=== PATIENT | female | born 1960 ===

== ENCOUNTER 2024-04-18 17:51 | Emergency (ER) | payer MEDICAID, SELFPAY ==
--- NOTE | ~2024-04-18 | CT_ITS ---
EXAMINATION: CT HEAD WITHOUT CONTRAST CLINICAL INFORMATION: Headache. COMPARISON: None available. TECHNIQUE: Contiguous axial imaging was performed from the skull base to vertex without intravenous administration of contrast. This CT examination was performed using dose optimization techniques as appropriate, variously including the following: *Automated exposure control. *Adjustment of mA and/or kV according to patient size (this includes techniques or standardized protocols for targeted exams where dose is matched to indication/reason for exam; i.e. extremities or head). *Use of iterative reconstruction technique. DLP: 564 mGy-cm FINDINGS: There is no evidence of acute intracranial hemorrhage or edematous territorial infarction. Carmichael-white matter differentiation is preserved. Scattered and partially confluent hypoattenuation in the periventricular and deep white matter are consistent with moderate microangiopathy. Proportional prominence of the ventricles and sulcal spaces without evidence of obstructive hydrocephalus. No abnormal mass effect or midline shift. No extra-axial fluid collections. No acute soft tissue or osseous abnormalities. Mild mucosal thickening of the paranasal sinuses. The mastoid air cells and middle ear cavities are clear. CT/CT head/brain wo IV con IMPRESSION: 1. No evidence of acute intracranial hemorrhage or edematous territorial infarction. 2. Moderate underlying microangiopathy and generalized cerebral volume loss. Electronically signed by: Sukhdeep Adames DO 04/18/2024 07:58 PM EDT
[2024-04-18 17:58] VITALS: BP 166/95; PULSE 96; RESP 22; TEMP 36.8; O2SAT 100; BMI 24.9
--- NOTE | 2024-04-18 18:02 | ECG_ITS ---
Test Reason : PAIN Blood Pressure : / mmHG Vent. Rate : 093 BPM Atrial Rate : 093 BPM P-R Int : 120 ms QRS Dur : 126 ms QT Int : 398 ms P-R-T Axes : 005 002 -11 degrees QTc Int : 494 ms Normal sinus rhythm Right bundle branch block Anterior infarct , age undetermined T wave abnormality, consider inferior ischemia Abnormal ECG No previous ECGs available Referred By: Nicholas Howard Electronically Signed By:LIZANDRO GUIDRY
--- NOTE | 2024-04-18 18:03 | ED.GENADULT ---
HPI - General Adult General Chief complaint: Dizziness Stated complaint: stroke like symptoms Time Seen by Provider: 04/18/24 19:30 History of Present Illness ED Provider: Zeus OAKES narrative: The patient is a 64-year-old female who comes to the emergency room for evaluation of a headache. The patient has a history of hypertension and history of mild dementia. She lives with her daughter. The patient says that she woke up with a headache this morning. She has a history of headaches. This headache was somewhat worse than her usual headaches. She did not mentioned in the headache to her daughter. This afternoon she was at a grocery store with her daughter when she seemed to feel dizzy and stumbled a little bit. She told her daughter about the headache at that point. She also complained of nausea and blurry vision. The daughter had her sit down and then brought her to the hospital by private vehicle. The patient says that the headache is 10/10. It is associated with nausea and photophobia. The patient has a history of migraines and has been having more frequent headaches over the last few months. She says this headache is worse than usual. No fever, sweats, chills. There is no report of any lateralizing weakness or change of speech or other neurological complaints. Related Data Allergies Allergy/AdvReac Type Severity Reaction Status Date / Time No Known Allergies Allergy Verified 04/18/24 18:00 [facility] Social History Social History Alcohol intake: current Alcohol type: wine Smoked in Last 30 Days: No Use of substances other than those prescribed or required for medical reasons: No Advance Directives: No Advance Directives Information Provided: No Physical Exam ED Vital Signs: Vital Signs - 24 hr 04/18/24 17:58 04/18/24 19:41 04/18/24 21:55 Temperature 98.3 F 97.9 F Pulse Rate 96 94 88 Respiratory Rate 22 H 22 H 17 Blood Pressure 166/95 H 159/97 H 144/85 H Pulse Oximetry 100 100 98 Oxygen Delivery Method Room Air Room Air Room Air BMI result Body Mass Index 24.9 Const Other: The patient is awake and alert. She says that she has a headache that she rates as a 10/10. She does not look toxic or obviously uncomfortable however. HENMT Other: Face is symmetrical. Mucous membranes moist. Tongue is midline. Eyes Other: Pupils are round equal, conjunctivae are clear, extraocular movements are intact, visual eaton are intact to confrontation. Neck Other: Neck is supple, no JVD Resp Effort & Inspection: normal respiratory effort Auscultation: clear to auscultation bilaterally Cardio Rate: regular rate Rhythm: regular rhythm Heart sounds: S1 normal heart sound present and S2 normal heart sound present GI Other: Abdomen is soft and nontender Skin Other: Skin is dry and unremarkable Neuro Other: The patient is awake, alert, pleasant, cooperative. Pupils are round equal, extraocular movements are intact, visual eaton are intact, the face is symmetrical, speech is clear, no aphasia, no dysarthria, normal strength in the extremities. No pronator drift. Finger-nose is normal. Heel-willingham is normal. Gait is steady. NIH stroke scale is 0. Extrem Other: No peripheral edema Course Course Course Narrative: RME, this is a rapid medical exam performed by Lewis Howard please refer to primary provider for complete H&P- 64-year-old female presents for evaluation of a severe headache. Patient was shopping with family, when the daughter returned, the patient was complaining of a severe headache, blurry vision and seemed confused the daughter. At the time of triage, the patient is awake, alert and oriented, she is answering questions appropriately, she has an NIH stroke score of 0. Plan for labs, CT scan of the brain. Medications Administered Discontinued Medications Generic Name Dose Route Start Last Admin Trade Name Humbertoq PRN Reason Stop Dose Admin Diphenhydramine HCl 25 mg 04/18/24 19:49 04/18/24 20:34 Diphenhydramine Hcl 50 Mg/Ml Vial IVPUSH 04/18/24 19:50 25 mg ONCE ONE Administration Sodium Chloride 1,000 mls @ 999 mls/hr 04/18/24 20:00 04/18/24 21:55 Ns IV 04/18/24 21:00 Infused .Q1H1M HUSSEIN Infusion Acetaminophen 1,000 mg in 100 mls @ 400 mls/hr 04/18/24 19:49 04/18/24 21:55 Ofirmev IV 04/18/24 20:03 Infused ONCE ONE Infusion Metoclopramide HCl 10 mg 04/18/24 19:49 04/18/24 20:35 Metoclopramide Hcl 10 Mg/2 Ml Vial IVPUSH 04/18/24 19:50 10 mg ONCE ONE Administration Medical Decision Making Medical Decision Making [facility] Narrative: The patient is a very pleasant 64-year-old female. According to her daughter she has some mild dementia. Clinically the patient presents with a headache that she says she woke up with this morning. She subsequently had some dizziness in the grocery store. She says that the headache is associated with nausea and photophobia. She has a history of similar headaches but less severe headaches. I suspect that this is probably a migraine headache. A head CT was negative for acute findings. She was treated with a dose of IV acetaminophen as well as IV metoclopramide and diphenhydramine as well as 1 L of IV crystalloid. Her headache improved. She was steady on her feet. I think she may be discharged with a presumed diagnosis of a migraine headache. The patient does not have a local PCP. She used to live in [place], [place]. She had a regular doctor in [place]. She now lives with a daughter and this area and has not yet established a primary care doctor. The immigration case manager spoke to the daughter about options for primary care follow up. Lab Data 04/18/24 18:21 04/18/24 18:21 Labs: Lab Results 04/18/24 04/18/24 04/18/24 Range/Units 18:21 19:19 19:24 WBC 11.7 H (4.8-10.8) X10*3/uL RBC 4.59 (4.20-5.50) X10*6/uL Hgb 13.8 (12.0-16.0) g/dl Hct 40.7 (37.0-47.0) % MCV 88.7 (80.0-98.0) fL MCH 30.1 (27.0-33.0) pg MCHC 33.9 (31.0-35.0) g/dl RDW 15.1 (11.0-16.0) % Plt Count 291 (160-400) X10*3/uL MPV 9.4 (9.4-12.3) fL Immature Gran % (Auto) 0.4 (0.0-0.4) % Neut % (Auto) 57.1 (45-73) % Lymph % (Auto) 34.2 (20-40) % Becker % (Auto) 5.2 (2-11) % Eos % (Auto) 2.3 (0-4) % Baso % (Auto) 0.8 (0-2) % Lymph # (Auto) 4.0 (1.2-4.9) X10*3/uL Becker # (Auto) 0.6 (0.1-1.2) X10*3/uL Eos # (Auto) 0.3 (0.0-0.4) X10*3/uL Baso # (Auto) 0.1 (0.0-0.2) X10*3/uL Abs Immat Gran (auto) 0.05 H (0.00-0.03) X10*3/uL Absolute Neuts (auto) 6.7 (2.0-8.3) x10*3/uL Absolute Nucleated RBC 0.000 (0.0-0.012) X10*3/uL Nucleated RBC % (auto) 0.0 (0.0-0.2) /100WBC PT 10.9 (10.9-12.4) SEC INR 0.9 (0.9-1.1) VBG pH 7.44 H (7.32-7.43) VBG pCO2 26 mmHg VBG pO2 47 mmHg VBG HCO3 18 L (22-26) mmol/L VBG O2 Saturation 75.0 % VBG Base Excess -3.9 mmol/L Sodium 137 (135-145) mmol/L Potassium 4.9 (3.3-5.1) mmol/L Chloride 97 (96-108) mmol/L Carbon Dioxide 16 L (22-29) mmol/L Anion Gap 29 H (12-20) BUN 19 H (9-16) mg/dL Creatinine 0.81 (0.5-1.4) mg/dL Estim Creat Clear Calc 59.1 Estimated GFR > 60 Random Glucose 76 (60-115) mg/dL Lactic Acid 3.3 H* (0.5-2.0) mmol/L Calcium 9.2 (8.4-10.2) mg/dL Total Bilirubin 0.3 (0.0-1.0) mg/dL AST 48 H (5-31) U/L ALT 30 (0-31) U/L Alkaline Phosphatase 99 (39-117) U/L Troponin I High Sens < 2.7 (<3.5-17.0) ng/L B-Natriuretic Peptide 13 (<100) pg/mL Total Protein 8.3 H (6.5-8.0) g/dL Albumin 4.5 (3.5-5.0) g/dL Lipase 13 (8-78) U/L Urine Color Urine Appearance Urine pH (5.0-9.0) Ur Specific Boron (1.005-1.025) Urine Protein (Neg-Trace) mg/dL Urine Glucose (UA) (Negative) mg/dL Urine Ketones (Negative) mg/dL Urine Blood (Negative) Urine Nitrite (Negative) Ur Leukocyte Esterase (Negative) Urine RBC (0-2) /HPF Urine WBC (0-5) /HPF Ur Squamous Epith Cells (0-2) /HPF Urine Bacteria (None Seen) Hyaline Casts (0-2) /LPF COVID-19 (LANCE) Negative (Negative) COVID-19 Clin Com See Note Influenza Type A (PCR) NEGATIVE (Negative) Influenza Type B (PCR) NEGATIVE (Negative) RSV RNA Qual (PCR) NEGATIVE (Negative) SARS-CoV-2 RNA (RT-PCR) NEGATIVE (Negative) 04/18/24 Range/Units 20:32 WBC (4.8-10.8) X10*3/uL RBC (4.20-5.50) X10*6/uL Hgb (12.0-16.0) g/dl Hct (37.0-47.0) % MCV (80.0-98.0) fL MCH (27.0-33.0) pg MCHC (31.0-35.0) g/dl RDW (11.0-16.0) % Plt Count (160-400) X10*3/uL MPV (9.4-12.3) fL Immature Gran % (Auto) (0.0-0.4) % Neut % (Auto) (45-73) % Lymph % (Auto) (20-40) % Becker % (Auto) (2-11) % Eos % (Auto) (0-4) % Baso % (Auto) (0-2) % Lymph # (Auto) (1.2-4.9) X10*3/uL Becker # (Auto) (0.1-1.2) X10*3/uL Eos # (Auto) (0.0-0.4) X10*3/uL Baso # (Auto) (0.0-0.2) X10*3/uL Abs Immat Gran (auto) (0.00-0.03) X10*3/uL Absolute Neuts (auto) (2.0-8.3) x10*3/uL Absolute Nucleated RBC (0.0-0.012) X10*3/uL Nucleated RBC % (auto) (0.0-0.2) /100WBC PT (10.9-12.4) SEC INR (0.9-1.1) VBG pH (7.32-7.43) VBG pCO2 mmHg VBG pO2 mmHg VBG HCO3 (22-26) mmol/L VBG O2 Saturation % VBG Base Excess mmol/L Sodium (135-145) mmol/L Potassium (3.3-5.1) mmol/L Chloride (96-108) mmol/L Carbon Dioxide (22-29) mmol/L Anion Gap (12-20) BUN (9-16) mg/dL Creatinine (0.5-1.4) mg/dL Estim Creat Clear Calc Estimated GFR Random Glucose (60-115) mg/dL Lactic Acid (0.5-2.0) mmol/L Calcium (8.4-10.2) mg/dL Total Bilirubin (0.0-1.0) mg/dL AST (5-31) U/L ALT (0-31) U/L Alkaline Phosphatase (39-117) U/L Troponin I High Sens (<3.5-17.0) ng/L B-Natriuretic Peptide (<100) pg/mL Total Protein (6.5-8.0) g/dL Albumin (3.5-5.0) g/dL Lipase (8-78) U/L Urine Color Yellow Urine Appearance Cloudy Urine pH 5.5 (5.0-9.0) Ur Specific Boron >= 1.030 H (1.005-1.025) Urine Protein 30 (1+) H (Neg-Trace) mg/dL Urine Glucose (UA) Negative (Negative) mg/dL Urine Ketones 40 (Negative) mg/dL Urine Blood Large (3+) H (Negative) Urine Nitrite Negative (Negative) Ur Leukocyte Esterase Negative (Negative) Urine RBC >20 H (0-2) /HPF Urine WBC 0-5 (0-5) /HPF Ur Squamous Epith Cells 11-20 (0-2) /HPF Urine Bacteria 3+ (None Seen) Hyaline Casts 3-5 (0-2) /LPF COVID-19 (LANCE) (Negative) COVID-19 Clin Com Influenza Type A (PCR) (Negative) Influenza Type B (PCR) (Negative) RSV RNA Qual (PCR) (Negative) SARS-CoV-2 RNA (RT-PCR) (Negative) Discharge Plan Discharge Clinical Impression: Migraine headache Patient Disposition: Home, Self-Care Instructions: Migraine Headache (ED) Additional Instructions: I think it was most likely a migraine headache that you had today. Please rest to get some sleep tonight. Continue your current medications. Please work on getting a new primary care doctor in this area. Return to the emergency room if significantly worse. Interventions: ED Discharge Assessment Last Done: 04/18/24 22:02 Print Language: Serbian
[2024-04-18 18:29] LABS: MANUAL DIFF FLAG NO
[2024-04-18 18:31] LABS: Basophils Absolute Auto 0.1 X10*3/uL (0.0-0.2); Basophils Percent Auto 0.8 % (0-2); Eosinophils Absolute Auto 0.3 X10*3/uL (0.0-0.4); Eosinophils Percent Auto 2.3 % (0-4); Hematocrit 40.7 % (37.0-47.0); Hemoglobin 13.8 g/dl (12.0-16.0); Imm Gran Abs Auto 0.05 X10*3/uL (0.00-0.03); Imm Gran Pct Auto 0.4 % (0.0-0.4); Lymphocytes Percent Auto 34.2 % (20-40); Mean Corpuscular HGB Conc 33.9 g/dl (31.0-35.0); Mean Corpuscular Hemoglobin 30.1 pg (27.0-33.0); Mean Corpuscular Volume 88.7 fL (80.0-98.0); Mean Platelet Volume 9.4 fL (9.4-12.3); Monocytes Absolute Auto 0.6 X10*3/uL (0.1-1.2); Monocytes Percent Auto 5.2 % (2-11); Neutrophils Absolute Auto 6.7 x10*3/uL (2.0-8.3); Neutrophils Percent Auto 57.1 % (45-73); Platelet Count 291 X10*3/uL (160-400); Red Blood Count 4.59 X10*6/uL (4.20-5.50); Red Cell Distribution Width 15.1 % (11.0-16.0); White Blood Count 11.7 X10*3/uL (4.8-10.8)
[2024-04-18 18:43] LABS: COVID-19 Test Negative (Negative); IDNOW Serial# 58CA691E
[2024-04-18 18:46] LABS: Alanine Aminotransferase 30 U/L (0-31); Albumin Level 4.5 g/dL (3.5-5.0); Alkaline Phosphatase 99 U/L (39-117); Anion Gap 29 (12-20); Aspartate Amino Transferase 48 U/L (5-31); Bilirubin Total 0.3 mg/dL (0.0-1.0); Blood Urea Nitrogen 19 mg/dL (9-16); Calcium 9.2 mg/dL (8.4-10.2); Carbon Dioxide 16 mmol/L (22-29); Chloride 97 mmol/L (96-108); Creatinine Clr Calc Pharmacy 59.1; Estimated Glomerular Filt Rate > 60; Glucose Random 76 mg/dL (60-115); Lipase 13 U/L (8-78); Potassium 4.9 mmol/L (3.3-5.1); Sodium 137 mmol/L (135-145); Total Protein 8.3 g/dL (6.5-8.0)
[2024-04-18 18:52] LABS: INTERNATIONAL NORM RATIO 0.9 (0.9-1.1); Prothrombin Time 10.9 SEC (10.9-12.4)
[2024-04-18 18:54] LABS: Troponin-I High Sensitivity < 2.7 ng/L (<3.5-17.0)
[2024-04-18 19:06] LABS: Influenza A PCR NEGATIVE (Negative); Influenza B PCR NEGATIVE (Negative); Resp Syncy Virus RNA Qual PCR NEGATIVE (Negative); SARS COV2 PCR INHOUSE NEGATIVE (Negative)
[2024-04-18 19:28] LABS: VBG Base Excess -3.9 mmol/L; VBG HCO3 18 mmol/L (22-26); VBG pCO2 26 mmHg; VBG pH 7.44 (7.32-7.43); VBG pO2 47 mmHg
[2024-04-18 19:41] VITALS: BP 159/97; PULSE 94; RESP 22; O2SAT 100
[2024-04-18 19:42] LABS: Lactic Acid 3.3 mmol/L (0.5-2.0)
[2024-04-18 19:57] LABS: B Type Natriuretic Peptide 13 pg/mL (<100)
[2024-04-18 20:18] LABS: Venous Blood Gas Refer to POC result
[2024-04-18] MEDS: diphenhydrAMINE HCL 50 MG/ML VIAL 25 MG IVPUSH (20:34)
[2024-04-18] MEDS: 0.9 % Sodium Chloride 1,000 ML 999 ML IV (20:34)
[2024-04-18] MEDS: Acetaminophen 1,000 MG/100 ML PIGGYBACK 400 MG IV (20:35)
[2024-04-18] MEDS: Metoclopramide HCl 10 MG/2 ML VIAL IVPUSH (20:35)
[2024-04-18 20:40] LABS: Appearance Urine Cloudy; Color Urine Yellow; Glucose Urine UA Negative (Negative); Leukocyte Esterase Urine Negative (Negative); Nitrite Urine Negative (Negative); PH 5.5 (5.0-9.0); Specific Gravity - Urine >= 1.030 (1.005-1.025); UMIC TRIGGER UACC YES; Urine Blood Large (3+) (Negative); Urine Ketones 40 mg/dL (Negative); Urine Protein 30 (1+) mg/dL (Neg-Trace)
[2024-04-18 20:42] LABS: Bacteria Urine 3+ (None Seen); RBC Urine >20 /HPF (0-2); WBC Urine 0-5 /HPF (0-5)
[2024-04-18 21:23] LABS: Reflex Lactate? Lactic Acid Added
[2024-04-18 21:55] VITALS: BP 144/85; PULSE 88; RESP 17; TEMP 36.6; O2SAT 98
[2024-04-18 22:02] VITALS: BP 144/85; PULSE 88; RESP 17; TEMP 36.6; O2SAT 98
== END 2024-04-18 22:04 | disposition home or self-care (01) ==
PROVIDERS: Physician Assistant; Emergency Provider Emergency Medicine
DX: G43.909 Migraine, unspecified, not intractable, without status migrainosus (principal); Z03.818 Encounter for observation for suspected exposure to other biological agents ruled out; I10 Essential (primary) hypertension
CPT/HCPCS: 0241U; 36415; 70450; 80053; 81001; 82803; 83605; 83690; 83880; 84484; 85025; 85610; 87635; 93005; 96361; 96374; 96375; 99284; 99285; J0131; J1200; J2765

== ENCOUNTER 2024-04-25 14:18 | Outpatient (AMB) | payer MEDICAID, SELFPAY ==
--- NOTE | 2024-04-25 15:07 | A.OFFVISCC_ITS ---
Vital Signs 04/26/24 15:40 BP 160/80 H Blood Pressure Location Rt brachial Position Sitting Pulse 96 Pulse Oximetry (%) 98 Intake Visit Reasons: Intake Allergies No Known Allergies Allergy (Verified 04/18/24 18:00) HPI HPI Intake: Details: Patient presents for evaluation and treatment of alcohol use She is accompanied by her daughter during visit RN obtained full substance history -reviewed Patient reports that she drinks every 2-3 days and each time will drink a bottle of wine She will occasionally also have vodka as well She usually starts drinking around 5 pm and will drink until she falls asleep She denies any tremor in the mornings She does report frequent nausea and vomiting, which she believes may be related to anxiety as well Denies any history of seizures Denies any history of treatment Reports that she started drinking at age 11. 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 son was incarcerated and this was a major source of sadness for her [facility] Social History Alcohol intake: current Alcohol type: wine Review of Systems Const Reports as per HPI GI Reports loose stools (occasional ), Reports nausea and Reports vomiting Psych Reports abnormal sleep pattern, Reports anxiety, Reports depression and Reports difficulty concentrating Physical Exam Const General: cooperative and anxious Nutritional Appearance: average body habitus Limitations: no limitations Psych Appearance: well kempt Speech and movement: Clear speech present Affect: Sad affect present and Anxious affect present Attitude: cooperative Thought process: Normal thought process present Insight: Fair insight present (Psych) Judgement: Fair judgement present (Psych) Assessment & Plan Assessment & Plan (1) Alcohol use disorder, moderate, dependence: Code(s): F10.20 - Alcohol dependence, uncomplicated Category: Medical Plan: * discussed medication options, agreeable to naltrexone. Reviewed dosing, goals of treatment and side effects * discussed lack of structure and isolation--presented PHP as an option to address some sx and work to develop coping strategies in addition to medications. Patient agreeable * risk reduction discussion related to drinking--avoid vodka if possbile, take vitamins and medications in the morning, attempt to eat something prior to drinking * encouraged to seek out PCP and weight management provider in the near future --can assist with this if needed Medications: New naltrexone take 1/2 tab daily for 3 days then take one tab daily 50 mg PO DAILY 30 tabs 0RF MAT Intake Nursing Intake Reason for visit: help with drinking Are you currently using?: Yes What are you taking?: Wine and Vodka When was your last use?: two days ago How much?: 1bottle of wine What is your source of income?: unemployed What is your current relationship status?: single Current PCP: N/A Date of last visit: >5 years Referral Source: I writer technical publications met her daughter at a community event who then brought her in Substance Abuse History Substance Abuse History (includes route, frequency and quantity): Alcohol Social History Domestic Violence concerns: No Children: 2 Do you have a support system?: yes daughter, but acknowledges needing Current mode of transportation?: daughter drives her, she does not have a car, interested in pt1 transportation Where are you currently residing?: in a home in [place] with daughter Are you using contraception?: No IV Drug Use Have you ever shared needles?: No Have you ever belonged to a needle exchange program?: No Do you buy needles at a pharmacy?: No Have you ever overdosed?: No Have you ever been hospitalized for an overdose?: No Was Naloxone administered?: No Recovery History Have you had any periods of recovery?: No Have you ever had inpatient treatment for your substance abuse disorder?: No Have you been in an inpatient detoxification program?: No Have you been in an inpatient Rehab/[place] house?: No Have you been in an outpatient Methadone Maintenance program?: No Have you been in an outpatient Suboxone Maintenance program?: No Have you been in an AA/NA support program?: No Have you had a Recovery Support Trust Advisor?: No Have you had Peer Support?: No Behavioral Health History Do you have a current provider? If so, who?: No, needs one History of self harming thoughts?: No History of homicidal or suicidal intentions?: No Medical Conditions Endocarditis?: No Skin Infection: No Seizure related to withdrawal or overdose: No Head or brain injury: Yes Hepatitis A (if yes, have you been treated?): No Hepatitis B (if yes, have you been treated?): No Hepatitis C (if yes, have you been treated?): No HIV (if yes, have you been treated?): No TB (if yes, have you been treated?): No Legal History History of incarceration: No Currently on parole or probation: No Court mandated programs: No Pending court cases: No DCF involvement: No
[2024-04-26 15:40] VITALS: BP 160/80; PULSE 96; O2SAT 98
== END 2024-04-25 15:41 | disposition home or self-care (01) ==
PROVIDERS: PCP Physician Assistant Medical; Visit Provider Nurse Practitioner Psychiatric/Mental Health
DX: F10.20 Alcohol dependence, uncomplicated (principal)
CPT/HCPCS: 99204

== ENCOUNTER → 2024-04-25 14:18 | Outpatient (BNVA) | payer MEDICAID, SELFPAY | PROVIDERS: PCP Physician Assistant Medical; Visit Provider Nurse Practitioner Psychiatric/Mental Health | DX: F10.20 Alcohol dependence, uncomplicated (principal) | CPT/HCPCS: 99212 ==

== ENCOUNTER 2024-05-10 15:54 | Emergency (ER) | payer MEDICAID, SELFPAY ==
[2024-05-10 16:25] VITALS: BP 153/95; PULSE 84; RESP 18; TEMP 36.4; O2SAT 100; BMI 29.3
--- NOTE | 2024-05-10 16:30 | ED.HA ---
HPI - Headache General Chief Complaint: Headache Stated Complaint: Headache/Vomiting Time Seen by Provider: 05/10/24 19:04 Source: patient and family Mode of arrival: ambulatory Limitations: no limitations History of Present Illness HPI Narrative: Patient is a 64-year-old female with past medical history of migraine headaches, hypertension, dementia, GERD, use disorder who presents emergency department evaluation of intermittent migraine headaches. Over the past few weeks a been occurring more frequently. Migraine was associated with photophobia, phonophobia, nausea and vomiting. No recent fall or head injury. No vision changes. No dizziness. No chest pain shortness of breath or difficulty breathing. She had a recent ED visit 04/18/2024 similarly, where she received IV medications and had a CT of the head which was unremarkable was ultimately discharged home. She has been living in this area since September of 2023, unfortunately has not been able to establish care with a primary care doctor locally to discuss migraine management. Daughter expresses concern that perhaps she is not taking her medications as prescribed due to her underlying dementia. She is supposed to be taking lisinopril 20 mg daily, the bottle that she presents with was filled in September of 2023, it was only a 90 day supply, there are still pills remaining affirming that she is likely not taking them as prescribed. She also has a history of alcohol use disorder, on 04/25/2024 she was prescribed naltrexone from [facility], and she continues to drink despite taking this. Daughter reports that Related Data Previous Rx's ?Medication ?Instructions ?Recorded naltrexone 50 mg tablet 50 mg PO DAILY #30 tabs 04/25/24 Allergies Allergy/AdvReac Type Severity Reaction Status Date / Time No Known Allergies Allergy Verified 05/10/24 16:30 Review of Systems Review of Systems: Yes all other systems are reviewed and are negative [facility] Past Medical History Attestation statement: The following information was validated with the patient. Source: old records reviewed Social History Social History Alcohol intake: current Alcohol type: wine Advance Directives: No Advance Directives Information Provided: Yes Do you have a plan to hurt others: No Plan Physical Exam Vital Signs: Vital Signs: Last Vital Signs Temp 98.0 F 05/10/24 19:54 Pulse 69 05/10/24 19:54 Resp 16 05/10/24 19:54 BP 150/93 H 05/10/24 19:54 Pulse Ox 100 05/10/24 19:54 O2 Del Method Room Air 05/10/24 19:54 O2 Flow Rate 100 05/10/24 18:00 BMI result Body Mass Index 29.3 Appearance: Alert.?Oriented to person, place and time. No acute distress.?Normal affect. Eyes: Pupils equal, round and reactive to light.? EOMI. No nystagmus. ENT: Pharynx normal.?? Neck: Normal inspection.? Neck supple.??Full range of motion. No rigidity. CVS: Heart sounds normal. Normal heart rate and rhythm.? Pulses normal.?? Respiratory: No respiratory distress.? Lung sounds clear to auscultation bilaterally?? Abdomen: Soft and non-tender. Normoactive bowel sounds. Skin: Skin warm and dry.? Normal skin color.? Extremities: No lower extremity edema.? Neuro: Moves all extremities spontaneously. Sensation intact bilaterally. CN II-XII intact. No focal neuro deficits. Ambulates with normal steady gait. Course Course Course Narrative: This is a rapid medical exam performed by Sherron Tsang PA-C. 64-year-old female with a history of alcohol use disorder, migraines, presents with migraine type headache x 1 day. Patient states she has been having intermittent headaches over the past week. Today the headache is frontal, with associated photophobia, phonophobia and nausea vomiting. On exam, the patient is neurologically intact with a steady gait. Given multiple episodes of nausea vomiting, we will screen basic labs. To note, there has been no preceding head trauma, she is not require imaging at this time. She was seen in the ER a few weeks ago with same presentation. She is able to return to the waiting room pending her full assessment. Reevaluation(s) Reevaluation #1: Headache has improved with oral medications; Tylenol, Benadryl, Reglan requesting discharge home at this time which I feel is appropriate. Advised close outpatient follow-up with addiction medicine, advised to refrain from alcohol consumption (reports no history of DT/withdrawal seizure). Daughter encouraged to continue calling local primary care offices to try and see if she can establish a sooner appointment. Has plans to find encourage daily consistent medication compliance, does not need any prescription refills at this time, medications not . Time: 20:59 Medications Administered Discontinued Medications Generic Name Dose Route Start Last Admin Trade Name Edi PRN Reason Stop Dose Admin Acetaminophen 975 mg 05/10/24 19:49 05/10/24 19:58 Acetaminophen 325 Mg Tablet PO 05/10/24 19:50 975 mg ONCE ONE Administration Diphenhydramine HCl 25 mg 05/10/24 19:49 05/10/24 19:57 Diphenhydramine Hcl 25 Mg Capsule PO 05/10/24 19:50 25 mg ONCE ONE Administration Metoclopramide HCl 10 mg 05/10/24 19:49 05/10/24 19:57 Metoclopramide Hcl 10 Mg Tablet PO 05/10/24 19:50 10 mg ONCE ONE Administration Medical Decision Making Medical Decision Making MDM Narrative: Patient is a 64-year-old female with past medical history of migraine headaches, hypertension, dementia, GERD, use disorder who presents emergency department evaluation of intermittent migraine headaches, currently with a frontal migraine. On examination appears overall well, nontoxic, afebrile. No focal neurological deficits. She is hypertensive; 162/87 will provide her with lisinopril 20 mg. We discussed IV abortive migraine management, she is requesting oral medications as sometimes she has a difficult IV stick; patient received acetaminophen, Reglan, Benadryl and will push oral fluids. Obtaining urinalysis to evaluate for possible dehydration urine concentration. Reviewed serum labs no leukocytosis, anemia, or thrombocytopenia. No significant electrolyte derangement. No AHSAN. Mildly elevated AST and ALT 70/35, likely due to underlying alcohol use disorder, abdominal examination is benign. Recent head CT from ED visit 04/18/2024 without acute intracranial pathology, no recent injury or trauma that would suggest obtaining repeat CT at this time. I did discuss with patient and daughter that she should not be consuming alcohol while taking oral naltrexone as this can result in her feeling quite unwell, may be resulting in the nausea and vomiting as well. Differential Diagnosis Differential Diagnoses: The differential diagnosis associated with the presentation includes (See narrative above) Admission/Observation Consideration of admission/observation: Escalation of care including admission/observation considered (See narrative above) Lab Data [facility] Lab Attestation statement: I reviewed the patient's lab results. (See narrative above) 05/10/24 17:24 05/10/24 17:24 Labs: Lab Results 05/10/24 05/10/24 Range/Units 17:24 20:00 WBC 9.7 (4.8-10.8) X10*3/uL RBC 4.35 (4.20-5.50) X10*6/uL Hgb 13.2 (12.0-16.0) g/dl Hct 39.5 (37.0-47.0) % MCV 90.8 (80.0-98.0) fL MCH 30.3 (27.0-33.0) pg MCHC 33.4 (31.0-35.0) g/dl RDW 15.9 (11.0-16.0) % Plt Count TNP MPV Not Reportable Immature Gran % (Auto) 0.2 (0.0-0.4) % Neut % (Auto) 59.0 (45-73) % Lymph % (Auto) 34.9 (20-40) % [place] % (Auto) 4.6 (2-11) % Eos % (Auto) 0.6 (0-4) % Baso % (Auto) 0.7 (0-2) % Lymph # (Auto) 3.4 (1.2-4.9) X10*3/uL [place] # (Auto) 0.5 (0.1-1.2) X10*3/uL Eos # (Auto) 0.1 (0.0-0.4) X10*3/uL Baso # (Auto) 0.1 (0.0-0.2) X10*3/uL Abs Immat Gran (auto) 0.02 (0.00-0.03) X10*3/uL Absolute Neuts (auto) 5.7 (2.0-8.3) x10*3/uL Absolute Nucleated RBC 0.000 (0.0-0.012) X10*3/uL Nucleated RBC % (auto) 0.0 (0.0-0.2) /100WBC Smear Tech's Comments VERIFIED Sodium 140 (135-145) mmol/L Potassium 4.7 (3.3-5.1) mmol/L Chloride 104 (96-108) mmol/L Carbon Dioxide 23 (22-29) mmol/L Anion Gap 18 (12-20) BUN 11 (9-16) mg/dL Creatinine 0.80 (0.5-1.4) mg/dL Estim Creat Clear Calc 64.5 Estimated GFR > 60 Random Glucose 97 (60-115) mg/dL Calcium 9.8 D (8.4-10.2) mg/dL Magnesium 2.0 (1.6-2.6) mg/dL Total Bilirubin 0.3 (0.0-1.0) mg/dL AST 78 H (5-31) U/L ALT 35 H (0-31) U/L Alkaline Phosphatase 90 (39-117) U/L Total Protein 7.9 (6.5-8.0) g/dL Albumin 4.4 (3.5-5.0) g/dL Urine Color Yellow Urine Appearance Clear Urine pH 7.5 (5.0-9.0) Ur Specific [place] 1.020 (1.005-1.025) Urine Protein Negative (Neg-Trace) mg/dL Urine Glucose (UA) Negative (Negative) mg/dL Urine Ketones 15 (Negative) mg/dL Urine Blood Negative (Negative) Urine Nitrite Negative (Negative) Ur Leukocyte Esterase Negative (Negative) Urine RBC 0-2 (0-2) /HPF Urine WBC 0-5 (0-5) /HPF Ur Squamous Epith Cells 0-2 (0-2) /HPF Urine Bacteria Trace (None Seen) Hyaline Casts 0-2 (0-2) /LPF Independent Historian Clinical information obtained from an independent historian. History obtained from or confirmed by: Other (Daughter) External Record Review External record reviewed: Outpatient record Chronic Conditions Patient?s care impacted by: Hypertension and Other (Alcohol use disorder) Discharge Plan Discharge Clinical Impression: Headache Patient Disposition: Home, Self-Care Instructions: Acute Headache (DC) Prescriptions: No Action naltrexone 50 mg tablet 50 mg PO DAILY Qty: 30 0RF Rx Instructions: take 1/2 tab daily for 3 days then take one tab daily Referrals: [facility] [Provider Group] [facility] [Provider Group] [facility] Group] [facility]] Print Language: Welsh
[2024-05-10 17:55] LABS: Monocytes Absolute Auto 0.5 X10*3/uL (0.1-1.2); Monocytes Percent Auto 4.6 % (2-11); PLT CLUMP 1; SCAN SMEAR FLAG 1
[2024-05-10 17:56] LABS: Alanine Aminotransferase 35 U/L (0-31); Albumin Level 4.4 g/dL (3.5-5.0); Alkaline Phosphatase 90 U/L (39-117); Anion Gap 18 (12-20); Aspartate Amino Transferase 78 U/L (5-31); Bilirubin Total 0.3 mg/dL (0.0-1.0); Blood Urea Nitrogen 11 mg/dL (9-16); Calcium 9.8 mg/dL (8.4-10.2); Carbon Dioxide 23 mmol/L (22-29); Chloride 104 mmol/L (96-108); Creatinine Clr Calc Pharmacy 64.5; Estimated Glomerular Filt Rate > 60; Glucose Random 97 mg/dL (60-115); Potassium 4.7 mmol/L (3.3-5.1); Sodium 140 mmol/L (135-145); Total Protein 7.9 g/dL (6.5-8.0)
[2024-05-10 17:57] LABS: Basophils Absolute Auto 0.1 X10*3/uL (0.0-0.2); Basophils Percent Auto 0.7 % (0-2); Eosinophils Absolute Auto 0.1 X10*3/uL (0.0-0.4); Eosinophils Percent Auto 0.6 % (0-4); Hematocrit 39.5 % (37.0-47.0); Hemoglobin 13.2 g/dl (12.0-16.0); Imm Gran Abs Auto 0.02 X10*3/uL (0.00-0.03); Imm Gran Pct Auto 0.2 % (0.0-0.4); Lymphocytes Absolute Auto 3.4 X10*3/uL (1.2-4.9); Lymphocytes Percent Auto 34.9 % (20-40); MANUAL DIFF FLAG SCAN; Mean Corpuscular HGB Conc 33.4 g/dl (31.0-35.0); Mean Corpuscular Hemoglobin 30.3 pg (27.0-33.0); Mean Corpuscular Volume 90.8 fL (80.0-98.0); Neutrophils Absolute Auto 5.7 x10*3/uL (2.0-8.3); Red Blood Count 4.35 X10*6/uL (4.20-5.50); Red Cell Distribution Width 15.9 % (11.0-16.0)
[2024-05-10 18:00] VITALS: BP 162/87; PULSE 72; RESP 16; TEMP 36.7; O2SAT 100
[2024-05-10 18:22] LABS: White Blood Count 9.7 X10*3/uL (4.8-10.8)
[2024-05-10 18:25] LABS: SLIDE REVIEW VERIFIED
[2024-05-10 19:54] VITALS: BP 150/93; PULSE 69; RESP 16; TEMP 36.7; O2SAT 100
[2024-05-10] MEDS: diphenhydrAMINE HCL 25 MG CAPSULE PO (19:57)
[2024-05-10] MEDS: Metoclopramide HCl 10 MG TABLET PO (19:57)
[2024-05-10] MEDS: Acetaminophen 325 MG TABLET 975 MG PO (19:58)
--- NOTE | 2024-05-10 20:05 | PC.NURSE ---
pt requested po meds instead of IV meds, Ryan [employer] FURNITURE [employer]SEMBLER made aware and pt medicated per mar. pt encouraged to drink lots of fluids, reports some nausea at this moment, will attempt if relieved with meds. daughter at bedside. lights dimmed and noise minimized per request. call oates within reach.
[2024-05-10 20:09] LABS: Appearance Urine Clear; Color Urine Yellow; Glucose Urine UA Negative (Negative); Leukocyte Esterase Urine Negative (Negative); Nitrite Urine Negative (Negative); PH 7.5 (5.0-9.0); Urine Blood Negative (Negative); Urine Ketones 15 mg/dL (Negative); Urine Protein Negative (Neg-Trace)
[2024-05-10 20:14] LABS: Bacteria Urine Trace (None Seen); Hyaline Casts Urine 0-2 /LPF (0-2); RBC Urine 0-2 /HPF (0-2); Squamous Epithelial Cell Urine 0-2 /HPF (0-2); WBC Urine 0-5 /HPF (0-5)
[2024-05-10 21:04] VITALS: BP 168/92
[2024-05-10] MEDS: lisinopriL 20 MG TABLET PO (21:04)
[2024-05-10 21:05] VITALS: BP 168/92; PULSE 72; RESP 16; TEMP 36.6; O2SAT 100
== END 2024-05-10 21:05 | disposition home or self-care (01) ==
PROVIDERS: Nurse Practitioner Family; Physician Assistant Medical; Emergency Provider Emergency Medicine Emergency Medical Services
DX: R51.9 Headache, unspecified (principal); H53.143 Visual discomfort, bilateral; R11.2 Nausea with vomiting, unspecified; I10 Essential (primary) hypertension; Z79.899 Other long term (current) drug therapy
CPT/HCPCS: 36415; 80053; 81001; 83735; 85025; 99283; 99284

== ENCOUNTER 2024-05-11 14:53 | Outpatient (AMB) | payer MEDICAID, SELFPAY ==
--- NOTE | 2024-05-11 15:07 | A.OFFVISCC_ITS ---
Intake Visit Reasons: MAT Allergies No Known Allergies Allergy (Verified 05/10/24 16:30) HPI HPI MAT: Details: Patient presents for follow up for AUD Reports she is having difficulty with alcohol use --remains unchanged She reports drinking a bottle of wine Has cut out vodka Is considering attending AA again --she had done this in the past via phone Unclear if she ever attended partial--she does not recall Daughter then joined visit and clarified that May 31 intake with PHP Daughter sharing challenges with connecting to primary care and concern for getting medications refilled PFS Social History Alcohol intake: current Alcohol type: wine Review of Systems Const Reports as per HPI Physical Exam Const General: cooperative, anxious and well groomed Nutritional Appearance: average body habitus Assessment & Plan Assessment & Plan (1) Alcohol use disorder, moderate, dependence: Code(s): F10.20 - Alcohol dependence, uncomplicated Category: Medical Plan: * will reach out to community navigation for assistance with primary care * encouraged to continue with PHP admission scheduled for a couple of weeks * risk reduction discussion related to ETOH use * follow up 4 weeks
== END 2024-05-11 15:33 | disposition home or self-care (01) ==
PROVIDERS: PCP Physician Assistant Medical; Visit Provider Nurse Practitioner Psychiatric/Mental Health
DX: F10.20 Alcohol dependence, uncomplicated (principal)
CPT/HCPCS: 99214

== ENCOUNTER → 2024-05-11 14:53 | Outpatient (BNVA) | payer MEDICAID, SELFPAY | PROVIDERS: PCP Physician Assistant Medical; Visit Provider Nurse Practitioner Psychiatric/Mental Health | DX: F10.20 Alcohol dependence, uncomplicated (principal) | CPT/HCPCS: 99212 ==

== ENCOUNTER 2024-06-07 14:23 | Outpatient (REF) | payer OTHER, SELFPAY ==
[2024-06-07 16:30] LABS: Alanine Aminotransferase 33 U/L (0-31); Albumin Level 4.2 g/dL (3.5-5.0); Anion Gap 12 (12-20); Aspartate Amino Transferase 39 U/L (5-31); Bilirubin Total 0.1 mg/dL (0.0-1.0); Blood Urea Nitrogen 12 mg/dL (9-16); Calcium 9.4 mg/dL (8.4-10.2); Carbon Dioxide 22 mmol/L (22-29); Chloride 107 mmol/L (96-108); Estimated Glomerular Filt Rate > 60; Glucose Random 99 mg/dL (60-115); Potassium 4.4 mmol/L (3.3-5.1); Sodium 137 mmol/L (135-145); Total Protein 7.2 g/dL (6.5-8.0)
[2024-06-07 17:27] LABS: Alkaline Phosphatase 91 U/L (39-117)
== END 2024-06-07 14:24 | disposition home or self-care (01) ==
LOC: HO.LAB 14:23
PROVIDERS: Visit Provider Psychiatry & Neurology Psychiatry
DX: F10.90 Alcohol use, unspecified, uncomplicated (principal); F33.1 Major depressive disorder, recurrent, moderate; F01.50 Vascular dementia, unspecified severity, without behavioral disturbance, psychotic disturbance, mood disturbance, and anxiety
CPT/HCPCS: 36415; 80053

== ENCOUNTER 2024-06-15 08:45 | Outpatient (RCR) | payer OTHER, SELFPAY ==
[2024-06-01 11:46] VITALS: BMI 25.9
[2024-06-01 11:47] VITALS: BP 124/74; PULSE 68; TEMP 36.8
--- NOTE | 2024-06-01 15:55 | PC.ADMIT ---
Patient is a 64 year old female who was referred to [facility] by [facility] where patient receives MAT for alcohol use. Patient is trying to decrease her alcohol use. Patient struggling with depression and many losses including 2 close friends along with her brother in law who almost . Patient has a long history of alcohol dependence. Regarding amount of alcohol use patient stated, Depends sometimes I am able to drink a bottle of wine (smaller bottles), and other times I am able to consume a bottle in a 1/2 of wine or if I have Vodka 1/2 bottle, big bottle . Patient stated she drinks every other day. Patient stated she does not drink before noon however anytime after that. Denied any current withdrawal sxs. Patient is without diaphoresis, no tremulousness, no vomiting, no Ah, no VH. VSS BP 124/74 p 68. Patient reports a history of being dx with vascular dementia. Patient is currently living with daughter and daughters boyfriend. Patient stated she has lived with them for the past 11 months. Patient moved to [place] from [place]. Patient reports a history of being on Lisinopril and HCTZ however pharmacy stated that the medications were never picked up and the last time they were filled was in 2022. Patient stated she has not been to a PCP in years and currently goes to walk in clinics as a result. Patient is alert and oriented x4. Calm and cooperative. She presented with depressed mood and anxious affect. She denied SI, no HI. She was given a copy of her safety plan if needed.
--- NOTE | 2024-06-03 12:00 | P.HPPSP_ITS ---
[facility] Date of Service: 06/03/24 Chief Complaint: MDD,PTSD,AUD Sources of Information: patient interviewed and chart reviewed HPI Healthcare Proxy: No Guardianship: No Medical Problems Affecting Mental Status: No Narrative: as per nursing admission note on 06/01/2024: 64 year old female who was referred to [facility] by [facility] where patient receives MAT for alcohol use. Patient is trying to decrease her alcohol use. Patient struggling with depression and many losses including 2 close friends along with her brother in law who almost . Patient has a long history of alcohol dependence. Regarding amount of alcohol use patient stated, Depends sometimes I am able to drink a bottle of wine (smaller bottles), and other times I am able to consume a bottle in a 1/2 of wine or if I have Vodka 1/2 bottle, big bottle . Patient stated she drinks every other day. Patient stated she does not drink before noon however anytime after that. Denied any current withdrawal sxs. Patient is without diaphoresis, no tremulousness, no vomiting, no Ah, no VH. VSS BP 124/74 p 68. Patient reports a history of being dx with vascular dementia. Patient is currently living with daughter and daughters boyfriend. Patient stated she has lived with them for the past 11 months. Patient moved to [place] from [place]. Patient reports a history of being on Lisinopril and HCTZ however pharmacy stated that the medications were never picked up and the last time they were filled was in 2022. Patient stated she has not been to a PCP in years and currently goes to walk in clinics as a result. Patient is alert and oriented x4. Calm and cooperative. She presented with depressed mood and anxious affect. She denied SI, no HI. She was given a copy of her safety plan if needed. today: While patient reports wanting help with alcohol addiction, depression and anxiety. Has not had Naltrexone for over 1 month. Would like to get restarted on same. Reviewed lab work from 05 08- and will repeat same to track liver function enzymes, which are largely okay had been trending down. Regarding alcohol drinking a bottle of wine per day. Last time was around 2-3 days ago. No history of delirium tremens or seizures. Longest sobriety 1 week. Has attended support groups in the past. Never been to rehab or AA or had a agile coach. Reports being motivated for sobriety for overall well-being and trying to be present for her family. Regarding depression and anxiety does have initial insomnia, perseverates on things, spend lots of time in bed, decreased appetite, no motivation, irritability and thoughts of , but nothing active at all. No louis. No psychosis. Denied other substances. Does have high blood pressure and will send prescription for medications as a gap including lisinopril and hydrochlorothiazide. Also advise to consider AA. We discussed medications for mood and will trial Remeron 7.5 mg. Prescription sent. Also sent prescription for Naltrexone. Past Psychiatric History: denied any inpatient episodes. One suicide attempt in 2016 when they were going to cut the wrist but a friend stopped them. No other medications apart from naltrexone. [facility] Medical History (Updated 06/01/24 @ 12:13 by Cinthya Olvera RN) History of headache History of migraine History of concussion Vascular dementia HTN (hypertension) Surgical History (Updated 06/01/24 @ 12:12 by Cinthya Olvera RN) Hx of appendectomy Hx of abdominoplasty H/O: hysterectomy H/O bariatric surgery Social History: Lives with daughter and their partner which is challenging as they have always lived alone. Waiting for apartment. Also has a son and grand children. Bachelor's degree in business administration. Did work with [employer], last time was 2 years ago. Substance History: Alcohol use disorder. Longest sobriety 1 week. No history of delirium tremens or withdrawal seizures Diagnostics Vital Signs (24Hr): BMI result Body Mass Index 25.9 Meds/Allergies Allergies Allergies Allergy/AdvReac Type Severity Reaction Status Date / Time No Known Allergies Allergy Verified 05/10/24 16:30 Mental Status Exam Mental Status Exam Patient Appearance: Appropriate Patient Orientation: Person, Place, Time and Situation Level of Consciousness: Awake and Appropriate Patient Behavior: Appropriate Mood Description: Depressed and Anxious Affect Description: Apathetic, Depressed and Anxious Patient Cognition Impaired: No Ability to Follow Directions: Good Speech Pattern: Clear Memory Description: Intact Hallucinations: None Delusions: Not Present Thought Process: Intact Thought Content: positive for Intact Depressive Symptoms: Increased Anxiety, Difficulty Sleeping, Changes in Appetite and Feelings of Guilt Judgement: Fair Telehealth Telehealth Telehealth Platform: Other (please specify) ( Digital Trowel) Location of provider rendering services: other ( [place]) Location of patient: other ( [facility]) Patient Identification confirmed using: Name, : Yes Telehealth method: video Patient verbally consented to treatment: Yes Minutes spent on Phone/Video with Pt.: 20 Assessment & Plan Assessment & Plan (1) Alcohol use disorder, moderate, dependence: Status: Acute Code(s): F10.20 - Alcohol dependence, uncomplicated Plan presents with alcohol use disorder, severe. Also comorbid mood disorder. Could benefit from partial hospital programming for stability, engagement with groups, therapy and support around substance use disorder. Will also repeat lab work and encourage follow-up with primary care provider and track LFTs. Does have high blood pressure and will send prescription for medications as a gap including lisinopril and hydrochlorothiazide. Also advise to consider AA. We discussed medications for mood and will trial Remeron 7.5 mg. Prescription sent. Also sent prescription for Naltrexone. Patient educated on: diagnosis, medication risk/benefits and therapeutic strategies Informed Consent: understands Reason for continued partial hosp. stay Substantial Risk for: inability to function Certification I certify that partial hospital treatment is medically necessary due to the symptoms and problems resulting from the patient's mental illness and the failure to treat the patient at the partial hospital level of care would likely result in the patient requiring inpatient psychiatric care which could not be prevented at a less intensive level of care. Time Spent With Patient Time: Total time managing care of this patient today _50___ minutes.
--- NOTE | 2024-06-09 11:43 | PC.NURSE ---
New PCP appointment with [facility]. [address], [place]. Office Number [phone]. August 03, 2024 at 3:00pm with Dr. Nehemias Whitney. Prior to appointment fax medical records from your previous doctor to [facility] office. Fax number [phone].
--- NOTE | 2024-06-10 14:56 | HO.PHP ---
OP apts for Berna are as follows: 06/20/2024? ?3:00 PM - 04:00 PM CHD Adult Comprehensive Assessment Prog: [facility] Site: [facility], [place] Staff: LYDIA PAULINO 07/27/2024? ?9:00 AM - 10:00 AM Psychiatric E/M New - Face to Face v2 Prog: Psychiatric Services Site: [address] [place] [address], [place] Staff: DAYSI SHIRLEY
--- NOTE | 2024-06-10 23:02 | HO.PHPPROGNO ---
Subjective Subjective Date of Service: 06/10/24 Reason For Visit: MDD,PTSD,AUD Review of Systems tc Diagnostics Vital Signs (24Hr): BMI result Body Mass Index 25.9 Assessment & Plan Certification I certify that partial hospital treatment is medically necessary due to the symptoms and problems resulting from the patient's mental illness and the failure to treat the patient at the partial hospital level of care would likely result in the patient requiring inpatient psychiatric care which could not be prevented at a less intensive level of care. Total time managing care of this patient today ____ minutes. Discharge Plan Discharge Attending provider: Tiff Vasquez Additional Instructions: New PCP appointment with [facility]. [address] [place], [place]. Office Number [phone]. August 03, 2024 at 3:00pm with Dr. Nehemias Whitney. Prior to appointment fax medical records from your previous doctor to [facility] office. Fax number [phone]. 06/20/2024? ?3:00 PM - 04:00 PM CHD Adult Comprehensive Assessment Prog: [facility] Site: [address] [place] [address] Staff: LYDIA PAULINO 07/27/2024? ?9:00 AM - 10:00 AM Psychiatric E/M New - Face to Face v2 Prog: Psychiatric Services Site: [address] [place] [address] Staff: DAYSI SHIRLEY Medications: Continued naltrexone 50 mg tablet 50 mg PO DAILY Qty: 30 0RF Rx Instructions: take 1/2 tab daily for 3 days then take one tab daily mirtazapine [Remeron] 15 mg tablet 7.5 mg PO BEDTIME Qty: 7 0RF Stand Alone Forms: Patient Portal Discharge page Print Language: Albanian
[2024-06-15 13:51] VITALS: BP 126/80; PULSE 80
--- NOTE | 2024-06-15 21:41 | HO.PHPPROGNO ---
Subjective Subjective Date of Service: 06/15/24 Reason For Visit: MDD,PTSD,AUD Interim History: Patient seen for follow-up, anticipating discharge at the end of program today.? Reports no acute issues or concerns. Medication compliant, medications well-tolerated. Denies any adverse effects.? Mood is stable.? Denies any hopelessness or SI. Denies thoughts of harming self or others at this time. Denies any aggressive ideation or HI. Denies any paranoia or AH or VH. Sleep, appetite, energy stable. Alert, oriented, in no acute distress. Calm, cooperative. Mood stable, affect appropriate. Speech normal. Thought process linear, coherent, more goal-directed. Thought content related to stressors, future-oriented, denies any helplessness, hopelessness or SI.? No aggressive ideation or HI. No paranoia or delusional content elicited. No evidence of psychosis. Insight and judgment fair-good. Discharge from [facility] Continue regular medications Refills sent to pharmacy Will defer further medication management to outpatient provider *Safety plan reviewed *Discharge diagnoses, treatment course, discharge plan have been reviewed with patient (including medication regime, medication management, potential side effects) as well as treatment rationale were also revisited *Discharge paperwork signed and given to patient, copy sent for scanning to chart Mental Status Exam Mental Status Exam Patient Appearance: Appropriate Patient Orientation: Person, Place, Time and Situation Level of Consciousness: Awake and Appropriate Patient Behavior: Appropriate Mood Description: Depressed and Anxious Affect Description: Apathetic, Depressed and Anxious Patient Cognition Impaired: No Ability to Follow Directions: Good Speech Pattern: Clear Memory Description: Intact Diagnostics Vital Signs (24Hr): Vital Signs - 24 hr 06/15/24 13:51 Pulse Rate 80 Blood Pressure 126/80 BMI result Body Mass Index 25.9 Assessment & Plan Assessment & Plan (1) Alcohol use disorder, moderate, dependence: Status: Acute Code(s): F10.20 - Alcohol dependence, uncomplicated Plan presents with alcohol use disorder, severe. Also comorbid mood disorder. Could benefit from partial hospital programming for stability, engagement with groups, therapy and support around substance use disorder. Will also repeat lab work and encourage follow-up with primary care provider and track LFTs. Does have high blood pressure and will send prescription for medications as a gap including lisinopril and hydrochlorothiazide. Also advise to consider AA. We discussed medications for mood and will trial Remeron 7.5 mg. Prescription sent. Also sent prescription for Naltrexone. Certification I certify that partial hospital treatment is medically necessary due to the symptoms and problems resulting from the patient's mental illness and the failure to treat the patient at the partial hospital level of care would likely result in the patient requiring inpatient psychiatric care which could not be prevented at a less intensive level of care. Total time managing care of this patient today ____ minutes. Discharge Plan Discharge Attending provider: Tiff Vasquez Additional Instructions: New PCP appointment with [facility]. [address] [place] [address]. Office Number [phone]. August 03, 2024 at 3:00pm with Dr. Nehemias Whitney. Prior to appointment fax medical records from your previous doctor to [facility] office. Fax number [phone]. 06/20/2024? ?3:00 PM - 04:00 PM [facility] Adult Comprehensive Assessment Prog: [facility] Site: [address] [place] [address] Staff: LYDIA PAULINO 07/27/2024? ?9:00 AM - 10:00 AM Psychiatric E/M New - Face to Face v2 Prog: Psychiatric Services Site: [address] [place] [address] Staff: DAYSI SHIRLEY Medications: New mirtazapine 7.5 mg tablet 7.5 mg PO BEDTIME Qty: 14 0RF Continued naltrexone 50 mg tablet 50 mg PO DAILY Qty: 30 0RF Rx Instructions: take 1/2 tab daily for 3 days then take one tab daily mirtazapine [Remeron] 15 mg tablet 7.5 mg PO BEDTIME Qty: 7 0RF Stand Alone Forms: Patient Portal Discharge page Print Language: Indonesian
== END 2024-06-15 23:59 | disposition home or self-care (01) ==
LOC: HO.PHPA 08:45
PROVIDERS: Visit Provider Psychiatry & Neurology Psychiatry
DX: F10.20 Alcohol dependence, uncomplicated (principal); F32.9 Major depressive disorder, single episode, unspecified; F41.9 Anxiety disorder, unspecified
CPT/HCPCS: 90791; 90853

== ENCOUNTER 2024-08-03 14:30 | Outpatient (AMB) | payer OTHER, SELFPAY ==
--- NOTE | 2024-08-03 14:49 | A.OFFPC_ITS ---
Vital Signs 08/03/24 14:55 Height 5 ft 1 in Weight 139 lb 6 oz BMI 26.3 BP 140/90 H Blood Pressure Location Rt brachial Position Sitting Respiration 14 Pulse 71 Pulse Source Pulse Oximeter Pulse Oximetry (%) 99 Oxygen Delivery Method Room Air Intake Visit Reasons: DOUBLE CUT SAWYER-PE Intake Note: establish care Is last menstrual period known: No Post menopausal: Yes Patient : No Allergies No Known Allergies Allergy (Verified 08/03/24 14:51) Medication List - Last Reconciled 08/03/24 by Nehemias Whitney MD hydrochlorothiazide 25 mg PO DAILY lisinopril 20 mg PO DAILY mirtazapine (Remeron) 7.5 mg (1/2 x 15 mg) PO BEDTIME mirtazapine 7.5 mg PO BEDTIME naltrexone 50 mg PO DAILY Tobacco use date assessed: 08/03/24 Dental Screening Dental Screen Date: 08/03/24 Did you have a dental visit in the last 12 months?: No Did you have a dental problem in the last 6 months where you did not have access to dental care?: No Was dental information given to patient?: No HPI DOUBLE CUT SAWYER-PE HPI Details New Patient? ?? Prior PCP:? PCP was in [facility] Last office visit/CPE:? 2 yrs Acute issue(s):? Sore throat x 2 days. no remedies except Salt water gargles ?? PMHx:? HTN, Anxiety/Depression, EtoH abuse, Diverticulitis. Vascular Dementia mni stroke with R facial weakness which has resolved. SurgHx:?Gastric bypass, Patial Bowel resection Diverticulitis FHx:?Mom: HTN. Dad: Lung CA. SocHx:? Nonsmoker. EtOH multiple drinks daily No Drugs PFSH Medical History (Updated 08/03/24 @ 15:52 by Paul Rajput) History of headache History of migraine History of concussion Vascular dementia HTN (hypertension) Surgical History Hx of appendectomy Hx of abdominoplasty H/O: hysterectomy H/O bariatric surgery Social History Household Members: Family Housing: Apartment Alcohol intake: current Alcohol type: wine Patient Tobacco Use Status: Never used Tobacco Tobacco use type: Cigarette e-Cigarette/Vaping Use: Never Used service: No Current occupational status: retired Current occupational exposures/hazards: No Cognitive needs: No Hearing needs: No Vision needs: Yes Questionnaire PHQ-9 Over the last 2 weeks, how often have you been bothered by any of the following problems? 1. Little interest or pleasure in doing things: several days 2. Feeling down, depressed, or hopeless: several days 3. Trouble falling or staying asleep, or sleeping too much: nearly every day 4. Feeling tired or having little energy: nearly every day 5. Poor appetite or overeating: nearly every day 6. Feeling bad about yourself - or that you are a failure or have let yourself or your family down: several days 7. Trouble concentrating on things, such as reading the newspaper or watching television: several days 8. Moving or speaking so slowly that other people could have noticed. Or the opposite - being so fidgety or restless that you have been moving around a lot more than usual: not at all 9. Thoughts that you would be better off or of hurting yourself in some way: several days Total score: 14 Depression Screening Interpretation: Positive Depression Screening Done: Yes 66381 - PHQ-9 Billing: Yes Source: Developed by Drs. Zia Daugherty, Maria Esther Chino, Yovani Vegas and colleagues, with an educational travis from [employer]. Thrive Questionnaire Date Thrive assessed: 08/03/24 I am a: Parent/Caregiver What is your living situation today?: I choose not to answer this question Within the past 12 months, did the food you bought not last and you didn't have the money to get more?: Never true Within the past 12 months, did you worry whether your food would run out before you got money to buy more?: Never true Do you have trouble paying for medicines?: No Do you have trouble getting transportation to medical appointments?: Yes Do you have trouble paying your heating and electricity bill?: No Do you have trouble taking care of your child, family member or friend?: I choose not to answer this question Do you have trouble with day-to-day activities such as bathing, preparing meals, shopping, managing finances, etc.?: Yes Are you currently unemployed and looking for a job?: No Are you interested in more education?: No Please select the resources that you would like help with: Housing/Intermediate, Transportation and Care for elder or disabled Currently or been in a relationship where the following occur: I choose not to answer THRIVE Score: 1 AUDIT C Alcohol Use Questionnaire (AUDIT-C) 1. How often do you have a drink containing alcohol?: 4 or more times a week 2. How many drinks containing alcohol do you have on a typical day when you are drinking?: 3 or 4 3. How often do you have six or more drinks on one occasion?: Less than monthly Total Score: 6 IRN-7 AMB Questionnaire RIN-7 Date RIN - 7 assessed: 08/03/24 Feeling nervous, anxious, or on edge: 1 = Several days Not being able to stop or control worryin = Several days Worrying too much about different things: 1 = Several days Trouble relaxin = Not at all Being so restless that it is hard to sit still: 0 = Not at all Becoming easily annoyed or irritable: 1 = Several days Feeling afraid as if something awful might happen: 0 = Not at all Total RIN-7 score (0-4 normal; 5-9 mild; 10-14 moderate; 15-21 severe): 4 Source: Developed by Drs. Zia Daugherty, Maria Esther Chino, Yovani Vegas and colleagues, with an educational travis from [employer]. Review of Systems Psych Reports anxiety and Reports depression Physical exam (Primary Care) Vital Signs: Last Vital Signs Pulse 71 08/03/24 14:55 Resp 14 08/03/24 14:55 BP 140/90 H 08/03/24 14:55 Pulse Ox 99 08/03/24 14:55 Oxygen Delivery Method Room Air 08/03/24 14:55 BMI result Body Mass Index 26.3 Tobacco/Smoking Status: Tobacco use Status Tobacco use date assessed 08/03/24 08/03/24 14:59 Patient Tobacco Use Status Never used Tobacco 08/03/24 14:59 Tobacco use type Cigarette 08/03/24 14:59 e-Cigarette/Vaping Use Never Used 08/03/24 14:59 PHQ-9: PHQ-9 Score PHQ-9: Total score 14 08/03/24 15:21 Depression Screening Interpretation: Positive Thrive Assessment: Date of Thrive Assessment Date Thrive assessed 08/03/24 08/03/24 14:59 Currently or been in a relationship where the following occur: I choose not to answer Results AMB Rapid Strep AMB Rapid Strep Negative Last Edit by Yaneth Aguero CMA on 08/03/24 16:44 Coding Diagnoses Pharyngitis J02.9 HTN (hypertension) I10 Depression with anxiety F41.8 Vascular dementia F01.50 Alcohol use disorder, moderate, dependence F10.20 Laboratory exam ordered as part of routine general medical examination Z00.00 Additional Codes PHQ-9 - 18293 - PHQ-9 Billing: Yes ([id number]) Assessment & Plan Assessment & Plan (1) Pharyngitis: Code(s): J02.9 - Acute pharyngitis, unspecified Category: Medical Plan: Mild?erythema?with?a?few?small?patchy?areas Rapid?strep ___ (2) HTN (hypertension): Code(s): I10 - Essential (primary) hypertension Category: Medical Plan: Blood?pressure?is?too?high?but?patient?says?she?has?not?been?able?to?get?her?med ication Will?refill?these (3) Depression with anxiety: Code(s): F41.8 - Other specified anxiety disorders Category: Medical Plan: Significant?depression?and?some?mild?anxiety. Patient?does?acknowledge?SI?but?denies?any?current?plan Patient?contracts?for?safety Will?restart?mirtazapine Referring?her?to?[facility]?patient?psychiatric?consult?team?urgently Refer?her?to?the?nurse?navigator?to?evaluate?for?other?services Close?follow-up?in?a?couple?of?weeks Call?or?return?to?office?order?to?crisis?if?worsening?or?any?SI (4) Vascular dementia: Code(s): F01.50 - Vascular dementia, unspecified severity, without behavioral disturbance, psychotic disturbance, mood disturbance, and anxiety Category: Medical Plan: History?of?vascular?dementia?and?CVA She?notes?that?she?is?taking?aspirin?OTC?and?tolerating?this Will?also?have?her?start?atorvastatin Will?follow (5) Alcohol use disorder, moderate, dependence: Code(s): F10.20 - Alcohol dependence, uncomplicated Category: Medical Plan: Significant?amount?of?alcohol?daily She?had?been[facility]. I?will?refer?her?back?but?I?also?let?her?know?that?they?except?walk-in. (6) Laboratory exam ordered as part of routine general medical examination: Code(s): Z00.00 - Encounter for general adult medical examination without abnormal findings Category: Medical Plan: Check?labs Orders: Orders Lipid Panel Today Z00.00 - Encounter for general adult medical examination without abnormal findings TSH reflex Free T4 Today Z00.00 - Encounter for general adult medical examination without abnormal findings Comprehensive [place]. Panel Fast Today Z00.00 - Encounter for general adult medical examination without abnormal findings Complete Blood Count Auto Diff Today Z00.00 - Encounter for general adult medical examination without abnormal findings Microalbumin, Random (w Creat) Today I10 - Essential (primary) hypertension UA and rflx microscopic Today Z00.00 - Encounter for general adult medical examination without abnormal findings Vitamin D 25-OH Total Today E55.9 - Vitamin D deficiency, unspecified Vitamin B12 and Folate Today E53.8 - Deficiency of other specified B group vitamins Referrals Addiction Medicine Referral F10.20 - Alcohol dependence, uncomplicated, F41.8 - Other specified anxiety disorders Psychiatry Outpatient Consultation Service F41.8 - Other specified anxiety disorders Nurse Navigator Referral F10.20 - Alcohol dependence, uncomplicated, F41.8 - Other specified anxiety disorders, Z59.819 - Housing instability, housed unspecified
[2024-08-03 14:55] VITALS: BP 140/90; PULSE 71; RESP 14; O2SAT 99; BMI 26.3
== END 2024-08-03 17:06 | disposition home or self-care (01) ==
PROVIDERS: PCP Family Medicine; Visit Provider Family Medicine
DX: Z13.9 Encounter for screening, unspecified (principal)

== ENCOUNTER → 2024-08-03 14:30 | Outpatient (BNVA) | payer OTHER, SELFPAY | PROVIDERS: PCP Family Medicine; Visit Provider Family Medicine | DX: Z00.00 Encounter for general adult medical examination without abnormal findings (principal); J02.9 Acute pharyngitis, unspecified; I10 Essential (primary) hypertension; F41.8 Other specified anxiety disorders; F01.50 Vascular dementia, unspecified severity, without behavioral disturbance, psychotic disturbance, mood disturbance, and anxiety; F10.20 Alcohol dependence, uncomplicated; E55.9 Vitamin D deficiency, unspecified; E53.8 Deficiency of other specified B group vitamins; Z59.819 Housing instability, housed unspecified; Z86.73 Personal history of transient ischemic attack (TIA), and cerebral infarction without residual deficits | CPT/HCPCS: 87880; 96127; 99202 ==